=== PATIENT | male | born 1995 | race African-American/Black ===

== ENCOUNTER 2023-09-30 23:46 | Emergency (ER) | payer MEDICAID ==
[~2023-09-30] VITALS: Ht 170.2 cm; Wt 60.0 kg
[2023-10-01 00:12] VITALS: O2SAT 99
[2023-10-01 02:34] VITALS: BP 118/76; PULSE 116; RESP 16
[2023-10-01] MEDS: KETOROLAC 15MG/ML VIAL IV ONE (02:34)
[2023-10-01] MEDS: METOCLOPRAMIDE HCL 10MG/2ML VIAL IV ONE (02:34)
[2023-10-01] MEDS: DIPHENHYDRAMINE 50MG/ML VIAL IV ONE (02:34)
[2023-10-01 02:48] VITALS: TEMP 99
[2023-10-01] MEDS: SODIUM CHLORIDE 0.9% 500 ML IV ONE (02:48)
[2023-10-01] MEDS: ACETAMINOPHEN 325MG TABLET PO ONE (02:48)
[2023-10-01] MEDS ORDERED: ASPI-740 PO (04:09)
== END 2023-10-01 06:50 | disposition home or self-care (01) ==
LOC: ER 23:46
DX: G43.909 Migraine, unspecified, not intractable, without status migrainosus (principal); E11.9 Type 2 diabetes mellitus without complications; I10 Essential (primary) hypertension; G40.909 Epilepsy, unspecified, not intractable, without status epilepticus
CPT/HCPCS: 99284; 96374; 96375; 96361; J1200; J1885; J2765; J7040